=== PATIENT | male | born 1975 | race African-American/Black ===

== ENCOUNTER 2024-03-30 13:27 | Emergency (ER) | payer MEDICARE, SELFPAY ==
--- NOTE | ~2024-03-30 | CT_ITS ---
EXAMINATION: CT cervical spine wo con DATE: 03/30/2024 15:27 INDICATION: Left neck pain post fall on ice TECHNIQUE: Computed tomography (CT) of the cervical spine was performed without intravenous contrast. Automated exposure control and iterative reconstruction technique were employed. The dose-length pro duct was 535.72 mGy-cm. COMPARISON: None FINDINGS: Alignment is normal.. Mild atlantoaxial osteoarthritis. Vertebral body heights are normal. 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 No fracture. Moderate disc height loss at C3-C4 and C5-C6 and mild disc height loss at C2-C3 and C4-C5. There is multilevel mild to mod erate cervical uncovertebral osteoarthritis. Posterior disc osteophyte complexes contribute to mild c entral canal stenosis at C3-C4 and through C5-C6. There is multilevel mild cervical facet osteoarthri tis. There is mild neural foraminal stenosis bilaterally at C3-C4 and C5-C6. Cervical soft tissues ar e unremarkable. Visualized upper lungs are clear. IMPRESSION: 1. Mild to moderate cervical spondylosis. No acute osseous abnormality. 2. 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 Reviewed, dictated and finalized at location A. RER FILTER PLANT
--- NOTE | ~2024-03-30 | XR_ITS ---
EXAMINATION: XR hip LT 2V w AP pelvis DATE: 03/30/2024 15:17 INDICATION: Left hip and pelvis pain post fall TECHNIQUE: Anteroposterior view of the pelvis and anteroposterior and frog-leg lateral views of the l eft hip were obtained. COMPARISON: None. FINDINGS: Bone alignment is normal. No fracture. Bilateral hip and left sacroiliac joint spaces are normal. Mil d osteoarthritis at the right sacral joint. At least mild lower lumbar spondylosis. Soft tissues are unremarkable. IMPRESSION: 1. No acute osseous abnormality. 2. Mild degenerative skeletal changes in the lower lumbar spine and right sacroiliac joint. Reviewed, dictated and finalized at location A. DIFIER OPERATOR IMPRESSION: 1. No acute osseous abnormality. 2. Mild degenerative skeletal changes in the lower lumbar spine and right sacro iliac joint.
--- NOTE | ~2024-03-30 | XR_ITS ---
EXAMINATION: XR shoulder LT min 2V DATE: 03/30/2024 15:17 INDICATION: Left shoulder injury post fall on ice TECHNIQUE: AP internally and externally rotated, AP oblique externally rotated and transscapular Y vi ews of the left shoulder were obtained. COMPARISON: None FINDINGS: Normal alignment. No fracture. Glenohumeral joint is normal. Acromioclavicular joint is normal. Soft tissues are unremarkable. Visualized portion of the lungs are clear. IMPRESSION: Negative left shoulder radiographs. Reviewed, dictated and finalized at location A. ITIAN RESEARCH
[2024-03-30 13:31] VITALS: BP 144/71; PULSE 77; RESP 20; TEMP 36.6; O2SAT 100
--- NOTE | 2024-03-30 16:15 | ED.FALL ---
HPI - Fall General Chief Complaint: Fall Stated Complaint: glf Time Seen by Provider: 03/30/24 16:14 Source: patient Mode of arrival: EMS Limitations: no limitations History of Present Illness HPI Narrative: This is a 48-year-old male presents to the ED via EMS for chief complaint of fall on ice today. Patient states that he was walking when he accidentally slipped. States that he fell onto his left side. Reports pain to the left side of the neck, upper back, left shoulder and left hip. Denies syncope. Denies use of any blood thinners. Denies numbness, weakness or any further injury. Related Data Allergies Allergy/AdvReac Type Severity Reaction Status Date / Time No Known Allergies Allergy Verified 03/30/24 13:36 Review of Systems Review of Systems: All systems as dictated in HPI Exam Narrative: GENERAL: Well-appearing, well-nourished, and in no acute distress. HEAD: Normocephalic, atraumatic. EYES: PERRLA and EOMI. ENT: Nares clear, no rhinorrhea or epistaxis. Mucous membranes moist. Oropharynx without tonsillar hypertrophy exudate or other lesions. NECK: Supple. No adenopathy or masses. CHEST: No respiratory distress. Clear to auscultation. No wheezes rales or rhonchi HEART: Regular rate and rhythm. No murmur heard. Normal peripheral pulses. ABDOMEN: Soft, nontender, nondistended, normal active bowel sounds. MSK: Mild paraspinal tenderness to the left cervical spine. No midline tenderness throughout the spine. Mild left lateral hip tenderness. Neurovascularly intact distally. No deformities. Mild left shoulder tenderness to the anterior shoulder. Active range of motion is nearly full. Neurovascular intact distally. SKIN: Warm, dry, no rash. NEURO: Alert and oriented x4. No focal deficits. PSYCH: Normal mood and affect. Course Vital Signs Vital signs: Vital Signs Temperature 97.8 F 03/30/24 13:31 Pulse Rate 77 03/30/24 13:31 Respiratory Rate 20 03/30/24 13:31 Blood Pressure 144/71 H 03/30/24 13:31 Pulse Oximetry 100 03/30/24 13:31 Oxygen Delivery Room Air 03/30/24 13:31 Temperature 97.8 F 03/30/24 13:31 Pulse Rate 77 03/30/24 13:31 Respiratory Rate 20 03/30/24 13:31 Blood Pressure 144/71 H 03/30/24 13:31 Pulse Oximetry 100 03/30/24 13:31 Oxygen Delivery Room Air 03/30/24 13:31 MDM - Fall MDM Narrative Medical decision making narrative: This is a 48-year-old male who presents to the ED for chief complaint of fall on ice with subsequent left shoulder, left neck and left hip pain. Vitals are normal. Exam remarkable for the above. No overt signs of trauma. CT imaging of the cervical spine, x-rays of the left shoulder and left hip were all negative for acute osseous or traumatic findings. Patient was given Rx for cyclobenzaprine, Tylenol and ibuprofen contusions and muscle spasms Patient will be discharged in stable condition. Supportive measures discussed and return precautions given. Patient is understanding and agreeable with plan for discharge with PCP follow-up. Discharge Plan Discharge Clinical Impression: Fall due to ice or snow, Back spasm Patient Disposition: Home, Self-Care Condition: Stable Instructions: Antibiotic Form Additional Instructions: Your exam and imaging today are reassuring overall. No fractures. Please take pain medications as prescribed. Follow-up with PCP on this issue. If you have any new or worsening symptoms please return to the ER for further evaluation. Patient Language: Icelandic Prescriptions: New cyclobenzaprine 10 mg tablet 10 mg PO HS PRN (Reason: muscle spasm) Qty: 10 0RF ibuprofen 600 mg tablet 600 mg PO Q6H PRN (Reason: pain) Qty: 30 0RF acetaminophen [Tylenol Extra Strength] 500 mg tablet 500 mg PO Q6H PRN (Reason: fever or pain) Qty: 30 0RF Follow-up/Referrals: PHYSICIAN NOT ON STAFF,NONSTAFF [Primary Care Provider] - Time of Disposition: 16:17
--- OUTSIDE RECORDS SUMMARY | 2024-03-30 16:38 | XMS_ITS | Clinical Summary ---
Author Organization [facility] Address [address] [place] [address] Care Team Providers Care Manufacturers Service Representative Name Role Phone Nico Bain MD Primary Care Provider [phone] Allergies No known active allergies Medications calcium carbonate-vitam in D3 (CALTRATE 600 + D) 1500 mg (600 mg elemental) -400 units per tablet Take 2 tablets by mouth daily 3 Active gabapentin (NEURONTIN) 300 mg capsuleIndicati ons:Neuropathic Pain Take 1 capsule (300 mg total) by mouth 3 (three) times a day 90 capsule 5 3 Active ibuprofen (ADVIL,MOTRIN) 600 mg tablet Take 1 tablet (600 mg total) by mouth 3 (three) times a day as needed for pain 20 tablet 4 Active hydrocortisone 2.5 % cream Apply topically 2 (two) times a day as needed for irritation 30 g 4 Active diphenhydrAMINE 25 mg capsule Take 1 tablet/capsule (25 mg total) by mouth every 6 (six) hours as needed for itching 20 capsule 4 Active Active Problems No known active problems Social History Tobacco Use Types Packs/Day Years Used Date Smoking Tobacco: Unknown Tobacco Cessation:Counseling Given: Not Answered Personal Safety Answer Date Recorded Have you ever been in or are you currently in a harmful physical or emotional relationship or is someone making you feel afraid or unsafe? 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 Gender Identity Not on file Sexual Orientation Not on file Obstetrics History Last Filed Vital Signs Vital Sign Reading Time Taken Comments Blood Pressure 131/92 04/15/2023 10:43 PM WEAVING PROFESSOR Pulse 79 04/15/2023 10:43 PM WEAVING PROFESSOR Temperature 36.4 C (97.5 F) 04/15/2023 10:43 PM WEAVING PROFESSOR Respiratory Rate 18 04/15/2023 10:43 PM WEAVING PROFESSOR Oxygen Saturation 98% 04/15/2023 10:43 PM WEAVING PROFESSOR Inhaled Oxygen Concentration - - Weight 68 kg (150 lb) 04/15/2023 10:43 PM WEAVING PROFESSOR Height 170.2 cm (5' 7 ) 04/15/2023 10:43 PM WEAVING PROFESSOR Body Mass Index 23.49 04/15/2023 10:43 PM WEAVING PROFESSOR Plan of Treatment Health Maintenance Due Date Last Done Comments Colon Cancer Screening-Colonoscopy 1975 Depression Screening 1975 Hepatitis C Screening 1975 Prostate Cancer Screening-PSA 1975 DTaP/Tdap/Td Vaccine (1 - Tdap) 06/08/1986 Hepatitis B Screening 06/08/1993 Regular Well Visit/Exam 18-64 06/08/1993 Influenza Vaccine (#1) 2023 Pneumococcal vaccine <65 Aged Out No longer eligible based on patient's age to complete this topic Insurance MEDICARE Care Teams Manufacturers Service Representative Relationship Specialty Start Date End Date Nico Bain MD PCP - General 04/01/18
--- OUTSIDE RECORDS SUMMARY | 2024-03-30 16:39 | XMS_ITS | Referral Summary ---
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 Gender Identity Not on file Sexual Orientation Not on file Last Filed Vital Signs Vital Sign Reading Time Taken Comments Blood Pressure 131/92 04/15/2023 10:43 PM ASSEMBLY MACHINE OPERATOR Pulse 79 04/15/2023 10:43 PM ASSEMBLY MACHINE OPERATOR Temperature 36.4 C (97.5 F) 04/15/2023 10:43 PM ASSEMBLY MACHINE OPERATOR Respiratory Rate 18 04/15/2023 10:43 PM ASSEMBLY MACHINE OPERATOR Oxygen Saturation 98% 04/15/2023 10:43 PM ASSEMBLY MACHINE OPERATOR Inhaled Oxygen Concentration - - Weight 68 kg (150 lb) 04/15/2023 10:43 PM ASSEMBLY MACHINE OPERATOR Height 170.2 cm (5' 7 ) 04/15/2023 10:43 PM ASSEMBLY MACHINE OPERATOR Body Mass Index 23.49 04/15/2023 10:43 PM ASSEMBLY MACHINE OPERATOR Plan of Treatment Not on file Insurance MEDICARE Care Teams Airborne And Air Delivery Specialist Relationship Specialty Start Date End Date Nico Bain MD PCP - General 04/01/18
--- OUTSIDE RECORDS SUMMARY | 2024-03-30 16:39 | XMS_ITS | Patient Health Record ---
Author Organization [facility] Address [address] [place] [address] Care Team Providers Care Clerical Order Filler Name Role Phone Not, Provided Primary Care Provider Alexander Donis Unavailable [phone] Reason For Referral No Information Medications Medication SIG (Take, Route, Fr equency, Duration) Notes Start Date End Date Status Diclofenac Sodium 1 % as directed Topica l Apply no more than 4 grams to affected area of foot Q6-8 hours PRN Pain for 30 days 08/10/2015 Active Meloxicam 15 MG 1 tablet Orally once a day for 30 days 08/10/2015 Active Plan Of Treatment No Information Insurance Providers Payer Name Payer Address Payer Phone Subscriber Number Group Number Insured Name Patient Relationship to Insured Coverage Start Date Coverage End Date Annalisa [address] [place] [address] [id number] Raghu Juárez Self - patient is the insured
--- OUTSIDE RECORDS SUMMARY | 2024-03-30 16:39 | XMS_ITS | Clinical Summary ---
Author Organization [facility] Address [address] [place] [address] Care Team Providers Care Computational Mathematician Name Role Phone None, Provider MD Primary Care Provider Unavaila ble Medications No known medications Active Problems No known active problems Social History Tobacco Use Types Packs/Day Years Used Date Smoking Tobacco: Never Smokeless Tobacco: Never Tobacco Cessation:Counseling Given: Not Answered Alcohol Use Standard Drinks/Week Comments Yes 0 (1 standard drink = 0.6 oz pur e alcohol) socially Sex and Gender Information Value Date Recorded Sex Assigned at Not on file Legal Sex Male 9:05 PM CDT Gender Identity Not on file Sexual Orientation Not on file Last Filed Vital Signs Vital Sign Reading Time Taken Comments Blood Pressure 135/86 04/28/2023 12:00 AM CDT Pulse 60 04/28/2023 12:00 AM CDT Temperature 36.7 C (98 F) 04/27/2023 9:16 PM CDT Respiratory Rate 17 04/28/2023 12:00 AM CDT Oxygen Saturation 98% 04/28/2023 12:00 AM CDT Inhaled Oxygen Concentration - - Weight 68 kg (150 lb) 04/27/2023 9:16 PM CDT Height 170.2 cm (5' 7 ) 04/27/2023 9:16 PM CDT Body Mass Index 23.49 04/27/2023 9:16 PM CDT Plan of Treatment Health Maintenance Due Date Last Done Comments Colorectal Cancer Screening Colonoscopy (10 Years) 1975 Annual Physical 06/08/1978 Hepatitis C 06/08/1993 DTaP, Tdap and Td Vaccines ( 1 - Tdap) 06/08/1994 Hepatitis B Vaccines (1 of 3 - 19+ 3-dose series) 06/08/1994 COVID-19 Vaccine (2023-2 5 season) 2023 Influenza Adult (#1) 2023 Meningococcal B Vaccine Aged Out No l onger eligible based on patient's age to complete this topic Meningococcal Vaccine Aged Out No larisa aleyda eligible based on patient's age to complete this topic Pneumococcal Vaccine: Pediat rics (0 to 5 Years) and At-Risk Patients (6 to 64 Years) Aged Out No longer eligible b ased on patient's age to complete this topic RSV Immunizations Under 20 Months Aged Out No longer eligible based on patient's age to complete this topic Insurance MEDICARE Care Teams Computational Mathematician Relationship Specialty Start Date End Date None, Provider, PCP - General UNKNOWN PHYSICIAN SPECIALTY 04/27/23
[2024-03-30 16:42] VITALS: BP 140/75; PULSE 74; RESP 18; TEMP 36.7; O2SAT 100
== END 2024-03-30 16:42 | disposition home or self-care (01) ==
PROVIDERS: Emergency Provider Physician Assistant
DX: M62.830 Muscle spasm of back (principal); W00.0XXA Fall on same level due to ice and snow, initial encounter
CPT/HCPCS: 72125; 73030; 73502; 99284